=== PATIENT | male | born 1990 | race Hispanic/Latino ===

== ENCOUNTER 2017-06-20 17:16 | Emergency (ER) | payer OTHER ==
--- NOTE | 2017-06-20 17:49 | ED PDOC ---
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 brought in by EMS as he was found awake and sitting down but appeared intoxicated. Admits to drinking alcohol. Offers no complaints at this time. Past Medical History Reviewed: Historical Data, Nursing Documentation, Vital Signs Vital Signs: Last Vital Signs Temp 96 F L 06/20/17 17:18 Pulse 111 H 06/20/17 17:18 Resp 18 06/20/17 17:18 BP 143/91 H 06/20/17 17:18 Pulse Ox 96 06/20/17 17:18 - Family History Family History: States: No Known Family Hx - Allergies Allergies/Adverse Reactions: Allergies Allergy/AdvReac Type Severity Reaction Status Date / Time No Known Allergies Allergy Verified 06/20/17 17:17 Review of Systems ROS Statement: Except As Marked, All Systems Reviewed And Found Negative Physical Exam - Reviewed Nursing Documentation Reviewed: Yes Vital Signs Reviewed: Yes - Physical Exam Appears: Positive for: Well, Non-toxic, No Acute Distress Head Exam: Positive for: ATRAUMATIC, NORMAL INSPECTION, NORMOCEPHALIC Skin: Positive for: Normal Color, Warm. Negative for: Rash Eye Exam: Positive for: EOMI, Normal appearance, PERRL ENT: Positive for: Normal ENT Inspection, TM Is/Are (no hemotympanum b/l) Neck: Positive for: Normal, Painless ROM Cardiovascular/Chest: Positive for: Chest Non Tender, Other (no ecchymosis). Negative for: Murmur, Tachycardia Respiratory: Positive for: Normal Breath Sounds. Negative for: Respiratory Distress Gastrointestinal/Abdominal: Positive for: Normal Exam, Bowel Sounds, Soft, Other (no ecchymosis). Negative for: Tenderness Back: Positive for: Normal Inspection. Negative for: L CVA Tenderness, R CVA Tenderness, Vertebral Tenderness Extremity: Positive for: Normal ROM, Other (ecchymosis to b/l knees and b/l anterior legs) Neurologic/Psych: Positive for: Alert, Oriented, Other (AOB; slurred speech). Negative for: Aphasia, Facial Droop - ECG O2 Sat by Pulse Oximetry: 96 - Progress ED Course And Treament: ETOH level ordered. Due to ecchymosis on lower extremities and unreliable hx, pt. likely fell CT head w/o contrast will be ordered. B/L knee and tib/fib x-rays, CT head w/o contrast ordered. 1929 FSBS: 81 ETOH: 410 Pending imaging. Disposition - Clinical Impression Clinical Impression: Alcohol intoxication - Patient ED Disposition Is Patient to be Admitted: Transfer of Care (Signed out to Kelly SORIANO pending sobriety and imaging results.) - Disposition Disposition Time: 20:00 Condition: STABLE Forms: Responsa (Pashto)
--- NOTE | 2017-06-20 20:21 | CT ---
EXAM: CT Head Without Intravenous Contrast EXAM DATE/TIME: 06/20/2017 5:53 PM CLINICAL HISTORY: 27 years old, male; Injury or trauma; Fall; Initial encounter; Concussion / head injury; Consciousness not specified TECHNIQUE: Axial computed tomography images of the head/brain without intravenous contrast. All CT scans at this facility use one or more dose reduction techniques, viz.: automated exposure control; ma/kV adjustment per patient size (including targeted exams where dose is matched to indication; i.e. head); or iterative reconstruction technique. Coronal and sagittal reformatted images were created and reviewed. COMPARISON: There are no prior studies for comparison. FINDINGS: Brain: Ventricles are normal in size and configuration. There is no midline shift. There are no intra-axial or extra-axial mass lesions or areas of hemorrhage. There are no abnormal fluid collections. Hernandez-white differentiation is maintained. Ventricles: See above. Bones: Cranial vault is intact. Soft tissues: unremarkable Sinuses: There is no acute sinusitis. Ears and mastoids: Middle ears and mastoids are unremarkable Orbits: Orbital contents are unremarkable. IMPRESSION: No acute intracranial abnormality
--- NOTE | 2017-06-20 22:07 | ED PDOC ---
- ECG O2 Sat by Pulse Oximetry: 96 - Other Rad xray tib/fib bilateral X-Ray: Viewed By Me X-Ray Interpretation: no acute findings xray knees bilateral X-Ray: Viewed By Me X-Ray Interpretation: no acute findings - Progress ED Course And Treament: Case endorsed to technical publications writer from [employer] [facility] pending imaging, sobriety EXAM: CT Head Without Intravenous Contrast EXAM DATE/TIME: 06/20/2017 5:53 PM CLINICAL HISTORY: 27 years old, male; Injury or trauma; Fall; Initial encounter; Concussion / head injury; Consciousness not specified TECHNIQUE: Axial computed tomography images of the head/brain without intravenous contrast. All CT scans at this facility use one or more dose reduction techniques, viz.: automated exposure control; ma/kV adjustment per patient size (including targeted exams where dose is matched to indication; i.e. head); or iterative reconstruction technique. Coronal and sagittal reformatted images were created and reviewed. COMPARISON: There are no prior studies for comparison. FINDINGS: Brain: Ventricles are normal in size and configuration. There is no midline shift. There are no intraaxial or extra-axial mass lesions or areas of hemorrhage. There are no abnormal fluid collections. Hernandez-white differentiation is maintained. Ventricles: See above. Bones: Cranial vault is intact. Soft tissues: unremarkable Sinuses: There is no acute sinusitis. Ears and mastoids: Middle ears and mastoids are unremarkable Orbits: Orbital contents are unremarkable. IMPRESSION: No acute intracranial abnormality 22:20 Patient awake, alert, oriented x3. Ambulating steady gait. Requesting to be discharged at this time. Denies pain at present, states bruising on legs old. Patient is stable for discharge Return precautions given. Disposition - Clinical Impression Clinical Impression: Alcohol intoxication - POA Present On Arrival: Falls Or Trauma - Disposition Disposition: Routine/Home Disposition Time: 22:15 Condition: STABLE Instructions: Alcohol Abuse and Alcoholism (DC)
[2017-06-20 22:33] VITALS: BP 128/90; PULSE 99; RESP 18; TEMP 98.5; O2SAT 100
--- NOTE | 2017-06-21 09:00 | RAD ---
PROCEDURE: Bilateral Knee Radiographs. HISTORY: trauma COMPARISON: None. FINDINGS: BONES: Right Knee: No acute fracture. Left Knee: No acute fracture. JOINTS: Right Knee: Unremarkable. Left knee: Unremarkable. SOFT TISSUES: Right Knee: Normal. Left Knee: Normal. JOINT EFFUSION: Right Knee: None. Left Knee: None. OTHER FINDINGS: None. IMPRESSION: No demonstrated fracture or dislocation.
--- NOTE | 2017-06-21 09:00 | RAD ---
PROCEDURE: Radiographs of the bilateral Tibiae and Fibulae. HISTORY: trauma COMPARISON: None available. TECHNIQUE: Frontal and lateral views obtained. Please note that lateral views of the upper tibia/ fibulas are included in the knee radiographs performed concurrently. FINDINGS: BONES: RIGHT TIBIA: No fracture or destructive lesion. LEFT TIBIA: No fracture or destructive lesion. JOINT SPACES: RIGHT TIBIA: Normal. LEFT TIBIA: Normal. SOFT TISSUES: RIGHT TIBIA: Normal. LEFT TIBIA: Normal. OTHER FINDINGS: None. IMPRESSION: Unremarkable radiographs of the bilateral tibia and fibula.
== END 2017-06-20 22:34 | disposition home or self-care (01) ==
LOC: H.ER 17:16
DX: F10.129 Alcohol abuse with intoxication, unspecified (principal)